=== PATIENT | male | born 1955 | race Caucasian/White ===

== ENCOUNTER → 2020-01-20 | Outpatient (CLI) | payer OTHER ==
[~2020-01-20] MED LIST: ALLO100T PO; ALPR0.25 PO; ASPI81TA59 PO; CITA10TA4 PO; DEXT20TA2 PO; HYDR-2759 PO; LOSA-73 PO; PROM25TA10 PO; SIMV10TA PO
== END | disposition home or self-care (01) ==
LOC: LAB 15:04
PROVIDERS: ATTEND Orthopaedic Surgery
DX: Z01.818 Encounter for other preprocedural examination (principal); Z11.59 Encounter for screening for other viral diseases; G56.01 Carpal tunnel syndrome, right upper limb
CPT/HCPCS: C9803; U0003

== ENCOUNTER 2020-01-25 08:56 | Day surgery (SDC) | payer OTHER ==
[~2020-01-25] VITALS: Ht 170.2 cm; Wt 104.3 kg
[~2020-01-25 08:56] MED LIST changes: -HYDR-2759 PO; +HYDROmorphone 2 MG/ML VIAL IV PRN; +IV RINGERS,LACTATED 1000ML 1,000 ML IV SCH; +LIDOCAINE 1% PF 2 ML VIAL. ID PRN; +MORPHINE SULFATE 2 MG/ML VIAL. IV PRN; +ONDANSETRON PF 4 MG/2 ML VIAL. IV PRN; +PROCHLORPERAZINE 10 MG/2 ML VIAL. IV PRN; -PROM25TA10 PO; +fentaNYL PF VIAL 100 MCG/2 ML VIAL IV PRN
[2020-01-25] MEDS ORDERED: PROPOFOL 50 ML IV ONE (09:53)
[2020-01-25] MEDS ORDERED: LIDOCAINE 2% PF 5 ML VIAL. ONE ×3 (09:53→09:55)
[2020-01-25] MEDS ORDERED: 0.9 % SODIUM CHLORIDE 20 ML VIAL. IJ ONE ×2 (09:55)
[2020-01-25] MEDS ORDERED: MIDAZOLAM HCL/PF 2 MG/2 ML VIAL. ONE (09:59)
--- NOTE | 2020-01-25 10:40 | PDOC1 ---
History and Physical Date of Admission Date of Admission DATE: 01/25/20 TIME: 10:28 Identification/Chief Complaint Chief Complaint Right carpal tunnel syndrome Source Source: Chart review, Patient History of Present Illness History of Present Illness Cindy is here with right hand numbness, and also has left hand numbness. An EMG confirms carpal tunnel syndrome. Left hand dominant. He has been wearing bilateral hand braces with only partial relief. He currently describes numbness in both hands, exacerbated by riding a bicycle, doing housework, or driving. He is here today for elective right carpal tunnel release surgery Past Medical History Past Medical History ADHD-combined type. High blood pressure. High cholesterol. Cardiovascular: HTN, Hyperlipidemia Psych: Other (ADHD) Past Surgical History Past Surgical History back surgery - hernia 2009 Past Surgical History: Hernia Repair Family History Family History: Cancer, Diabetes, Heart Disease Social History Smoke: No ALCOHOL: occassional Current Medications Current Medications Current Medications Ondansetron HCl (Zofran) 4 mg PRN Q6HRS PRN IV NAUSEA/VOMITING; Start 01/25/20 at 07:00; Stop 01/26/20 at 06:59 Fentanyl Citrate (Fentanyl 2ml Vial) 25 mcg PRN Q5MIN PRN IV MILD PAIN 1-3; Start 01/25/20 at 07:00; Stop 01/26/20 at 06:59 Fentanyl Citrate (Fentanyl 2ml Vial) 50 mcg PRN Q5MIN PRN IV MODERATE TO SEVERE PAIN; Start 01/25/20 at 07:00; Stop 01/26/20 at 06:59 Morphine Sulfate (Morphine Sulfate) 1 mg PRN Q10MIN PRN IV SEVERE PAIN 7-10; Start 01/25/20 at 07:00; Stop 01/26/20 at 06:59 Ringer's Solution 1,000 ml @ 30 mls/hr Q24H IV Last administered on 01/25/20at 09:32; Start 01/25/20 at 07:00; Stop 01/25/20 at 18:59 Lidocaine HCl (Xylocaine-Mpf 1% 2ml Vial) 2 ml PRN 1X PRN ID PRIOR TO IV START; Start 01/25/20 at 07:00; Stop 01/26/20 at 06:59 Hydromorphone HCl (Dilaudid) 0.5 mg PRN Q10MIN PRN IV SEV PAIN, Second choice; Start 01/25/20 at 07:00; Stop 01/26/20 at 06:59 Prochlorperazine Edisylate (Compazine) 5 mg PACU PRN PRN IV NAUSEA, MRX1; Start 01/25/20 at 07:00; Stop 01/26/20 at 06:59 Cefazolin Sodium/ Dextrose 50 ml @ 100 mls/hr 1X PREOP PRN IV PRIOR TO PROCEDURE; Start 01/25/20 at 06:00; Stop 01/25/20 at 18:00 Propofol 50 ml @ As Directed STK-MED ONCE IV ; Start 01/25/20 at 09:53; Stop 01/25/20 at 09:53; Status DC Lidocaine HCl (Lidocaine Pf 2% Vial) 5 ml STK-MED ONCE .ROUTE ; Start 01/25/20 at 09:53; Stop 01/25/20 at 09:53; Status DC Lidocaine HCl (Lidocaine Pf 2% Vial) 5 ml STK-MED ONCE .ROUTE ; Start 01/25/20 at 09:53; Stop 01/25/20 at 09:53; Status DC Lidocaine HCl (Lidocaine Pf 2% Vial) 5 ml STK-MED ONCE .ROUTE ; Start 01/25/20 at 09:55; Stop 01/25/20 at 09:55; Status DC Sodium Chloride (SODIUM CHLORIDE 20ml) 20 ml STK-MED ONCE IJ ; Start 01/25/20 at 09:55; Stop 01/25/20 at 09:56; Status DC Sodium Chloride (SODIUM CHLORIDE 20ml) 20 ml STK-MED ONCE IJ ; Start 01/25/20 at 09:55; Stop 01/25/20 at 09:56; Status DC Midazolam HCl (Versed) 2 mg STK-MED ONCE .ROUTE ; Start 01/25/20 at 09:59; Stop 01/25/20 at 09:59; Status DC Active Scripts Active Reported Children's Aspirin (Aspirin) 81 Mg Tab.chew 81 Mg PO DAILY Adderall 20 Mg Tablet (Dextroamphetamine/Amphetamine) 20 Mg Tablet 20 Mg PO DAILY Xanax (Alprazolam) 0.25 Mg Tablet 0.25 Mg PO PRN Q6HRS PRN Citalopram Hbr (Citalopram Hydrobromide) 10 Mg Tablet 10 Mg PO DAILY Allopurinol 100 Mg Tablet 200 Mg PO DAILY Losartan Potassium 50 Mg Tablet 50 Mg PO DAILY Zocor (Simvastatin) 10 Mg Tablet 10 Mg PO HS Allergies Allergies: Coded Allergies: No Known Drug Allergies (Unverified , 01/25/20) ROS PSYCHOLOGICAL ROS: YES: Concentration difficultie Eyes: No Double vision HEENT: No: Hearing change Respiratory: No: Cough, Shortness of breath, SOB with excertion Cardiovascular: No Chest Pain Gastrointestinal: No Nausea, No Vomiting, No Diarrhea, No Constipation Musculoskeletal: Yes Joint Pain, Yes Pain In: (back and right hip, relieved with lumbar epidural steroid injection) Neurological: Yes Gait Disturbance (back and hip pain, difficulty walking the dog) Skin: No Hair Changes Physical Exam General: Alert, Cooperative HEENT: Atraumatic Lungs: Normal air movement Heart: RRR Abdomen: Soft Extremities: No clubbing, No cyanosis, No edema, Normal pulses, Other (The overall alignment of the RIGHT hand is normal. There are no masses. Minimal tenderness except over the median nerve. Light touch sensation is decreased in the thumb index and long finger. 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 Pulses intact. Phalen's positive. There is trace thenar atrophy. Tinel's equivocal. Tinel's at the elbow is negative. Mildly positive Grind test) Skin: No significant lesion Neuro: Normal speech, Normal tone Psych/Mental Status: Mood NL Vitals Vitals Vital Signs Date Time Temp Pulse Resp B/P (MAP) Pulse Ox O2 Delivery O2 Flow Rate FiO2 01/25/20 09:18 97.1 57 16 131/81 97 Room Air 97.1 Labs Labs EMG from 05/07/2017 was reviewed. The right median distal sensory latency at the second digit showed no response. The mid palm sensory latency was 3.3 ms. Motor latency across the wrist was 4.43 ms. Nerve conduction studies revealed absence of the right median distal sensory response with digital stimulation while the response obtained with palmar stimulation demonstrates moderately prolonged distal latency and reduced amplitude. The left median distal sensory responses demonstrated moderately prolonged distal latencies and reduced amplitudes. Needle examination was unremarkable. 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 This was slightly worse in the right upper extremity. VTE Prophylaxis Ordered VTE Prophylaxis Devices: No VTE Pharmacological Prophylaxi: No Assessment/Plan Assessment/Plan He has bilateral carpal tunnel syndrome. I recommended [facility] rather than simultaneous bilateral carpal tunnel release. We will plan for right carpal tunnel surgery today. He is here for elective right carpal tunnel release under regional anesthetic.We discussed the potential risks of infection, neurovascular injury, bleeding, painful scar, prolonged pain, or other potential surgical or anesthetic complications. We also discussed postoperative treatment and expectations. All of his questions were answered and he desires to proceed with surgery today. Justicifation of Admission Dx: Justifications for Admission: Justification of Admission Dx: N/A JOSE ENRIQUE CALDERON MD Jan 25, 2020 10:40
[2020-01-25] MEDS ORDERED: BUPIVACAINE-EPI 0.25%-1:200000 MPF 30 ML VIAL. ONE (11:23)
--- NOTE | 2020-01-25 11:36 | PDOC4 ---
Operative Note Operative Note DATE: January 25, 2020 PREOPERATIVE DIAGNOSIS Carpal tunnel syndrome, right upper limb G56.01 POSTOPERATIVE DIAGNOSIS: Carpal tunnel syndrome, right upper limb G56.01 PROCEDURES PERFORMED: right wrist, open carpal tunnel release (neuroplasty of the median nerve at the carpal tunnel, CPT 95584 SURGEON: Jose Enrique Luz MD VOLUNTEER SERVICES MANAGER: Chris REYES ANESTHESIA: Regional intravenous block (Katja Block) ESTIMATED BLOOD LOSS: 20 mL SPECIMENS: none DRAINS: none COMPLICATIONS: none TOURNIQUET: 22 minutes at 250 mm Hg INDICATIONS FOR PROCEDURE: The patient is a 64-year-old with right hand pain and numbness. EMG confirms carpal tunnel syndrome. The patient and I discussed carpal tunnel release surgery along with the potential risks of infection, neurovascular injury, bleeding, persistent or recurrent carpal tunnel syndrome, wound healing problems, or other surgical or anesthetic complications. All of the patients questions about surgery were answered and they desired to proceed. Written consent was obtained. DESCRIPTION OF OPERATION: The patient was identified in the preoperative holding area. The correct right hand was marked by me. The patient was taken to the operating room and positioned supine on the operating table with the right arm extended on an arm board. A tourniquet was placed on the upper right arm. Preoperative antibiotics were given intravenously. A timeout procedure was performed. A [place] block was performed by the anesthesia team, and the tourniquet was inflated as part of the anesthetic.The limb was prepared in sterile fashion with ChloraPrep solution and sterile drapes were applied. Forceps were used to pinch the skin at the wrist, to check the adequacy of the block.A curvilinear incision was made with a 15 blade scalpel, 2mm ulnar to the thenar crease, using landmarks including the thenar crease, Kaplans cardinal line, the ulnar border of the fingernail of the ring finger, the wrist flexion crease, and the palmaris longus tendon. Care was made not to extend this incision beyond Kaplans cardinal line, so as to avoid arterial injury. Loupe magnification (3.5x extended field) was used throughout to prevent neur ovascular injury. Sharp dissection was used through the subcutaneous tissues, and the palmaris longus tendon was retracted toward the thumb. Bipolar electrocautery was used for hemostasis. The transverse carpal ligament was identified and was divided under direct vision proximally and distally. Scissor dissection was used proximal to the wrist flexion crease to complete the proxima l release of the transverse carpal ligament with the skin elevated away from the dissection. Digital palpation was used proximally and distally, ensuring a complete release. A gentle scissor neuroplasty was now performed along the ulnar aspect of the median nerve, releasing dense adhesions and dense synovium. He had more prominent distended small veins within the carpal canal than is usually seen. The right median nerve was thinned. Care was made not to injure the motor branch on the radial aspect. Copious saline irrigation was used. The tourniquet was released. Bipolar electrocautery was used for hemostasis. The skin edges were injected with 0.25% bupivacaine with epinephrine. The skin edges were reapproximated with 3-0 Prolene horizontal mattress sutures by my assistant producer. Needle and sponge counts were correct. Xeroform and a sterile dressing were applied. here were no apparent complications. The patient returned to the recovery room in stable condition. JOSE ENRIQUE LUZ MD Jan 25, 2020 11:36
[2020-01-25] MEDS ORDERED: ceFAZolin 2GM PREMIX 2 GM/50 ML BAG IV ONE (12:00)
[2020-01-25] MEDS ORDERED: HYDROcodone/APAP 5/325MG 1 TAB TABLET ONE (12:02)
[2020-01-25] MEDS ORDERED: HYDROcodone/APAP 5/325MG 1 TAB TABLET PO ONE (12:15)
[2020-01-25 12:30] VITALS: BP 117/62
[2020-01-25] MEDS ORDERED: PROM25TA10 PO (12:33)
[2020-01-25] MEDS ORDERED: HYDR-2759 PO (12:33)
== END 2020-01-25 13:00 | disposition home or self-care (01) ==
LOC: EDSEX → SURG 08:56
PROVIDERS: ATTEND Orthopaedic Surgery
DX: G56.01 Carpal tunnel syndrome, right upper limb (principal); I10 Essential (primary) hypertension; E78.00 Pure hypercholesterolemia, unspecified; E78.5 Hyperlipidemia, unspecified; Z98.890 Other specified postprocedural states; Z79.899 Other long term (current) drug therapy; Z83.3 Family history of diabetes mellitus
CPT/HCPCS: 64721; A7015; J0690; J2250; J2704; J3490

== ENCOUNTER → 2020-02-24 | Outpatient (CLI) | payer OTHER ==
[2020-01-25 12:30] VITALS: BP 117/62
[~2020-02-24] MED LIST changes: +HYDR-2759 PO; -HYDROmorphone 2 MG/ML VIAL IV PRN; -IV RINGERS,LACTATED 1000ML 1,000 ML IV SCH; -LIDOCAINE 1% PF 2 ML VIAL. ID PRN; -MORPHINE SULFATE 2 MG/ML VIAL. IV PRN; -ONDANSETRON PF 4 MG/2 ML VIAL. IV PRN; -PROCHLORPERAZINE 10 MG/2 ML VIAL. IV PRN; +PROM25TA10 PO; -fentaNYL PF VIAL 100 MCG/2 ML VIAL IV PRN
== END | disposition home or self-care (01) ==
LOC: LAB 15:33
PROVIDERS: ATTEND Orthopaedic Surgery
DX: Z01.812 Encounter for preprocedural laboratory examination (principal); Z20.828 Contact with and (suspected) exposure to other viral communicable diseases; G56.00 Carpal tunnel syndrome, unspecified upper limb
CPT/HCPCS: U0003-CS

== ENCOUNTER 2020-03-02 08:24 | Day surgery (SDC) | payer OTHER ==
[~2020-03-02] VITALS: Ht 170.2 cm; Wt 104.0 kg
[~2020-03-02 08:24] MED LIST changes: +0.9 % SODIUM CHLORIDE 20 ML VIAL. IJ ONE; +BUPIVACAINE MPF 0.25% 30 ML VIAL. ONE; +BUPIVACAINE-EPI 0.5%-1:200000 MPF 30 ML VIAL. ONE; +HYDROmorphone 2 MG/ML VIAL IV PRN; +LIDOCAINE 2% PF 5 ML VIAL. ONE; +MORPHINE SULFATE 2 MG/ML VIAL. IV PRN; +ONDANSETRON PF 4 MG/2 ML VIAL. IV PRN; +PROCHLORPERAZINE 10 MG/2 ML VIAL. IV PRN; +PROPOFOL 10 MG/ML (20ML) VIAL. IV ONE; +ceFAZolin 2GM PREMIX 2 GM/50 ML BAG IV ONE; +fentaNYL PF VIAL 100 MCG/2 ML VIAL IV PRN; +fentaNYL PF VIAL 100 MCG/2 ML VIAL ONE
[2020-03-02] MEDS: IV RINGERS,LACTATED 1000ML 1,000 ML IV SCH ×2 (08:50→10:12)
--- NOTE | 2020-03-02 09:28 | PDOC4 ---
Operative Note Operative Note DATE: March 02, 2020 PREOPERATIVE DIAGNOSIS Carpal tunnel syndrome, left upper limb G56.02: POSTOPERATIVE DIAGNOSIS: Carpal tunnel syndrome, left upper limb G56.02 PROCEDURES PERFORMED: left wrist, open carpal tunnel release (neuroplasty of the median nerve at the carpal tunnel, CPT 25340) SURGEON: Jose Enrique Luz MD JACKSCREW WORKER: ANESTHESIA: Regional intravenous block ([place] Block) ESTIMATED BLOOD LOSS: 5 mL SPECIMENS: none DRAINS: none COMPLICATIONS: none TOURNIQUET: 26 minutes at 250 mm Hg INDICATIONS FOR PROCEDURE: The patient is a 64-year-old with left hand pain and numbness. EMG confirms carpal tunnel syndrome. The patient and I discussed carpal tunnel release surgery along with the potential risks of infection, neurovascular injury, bleeding, persistent or recurrent carpal tunnel syndrome, wound healing problems, or other surgical or anesthetic complications. All of the patients questions about surgery were answered and they desired to proceed. Written consent was obtained. DESCRIPTION OF OPERATION: The patient was identified in the preoperative holding area. The correct left hand was marked by me. The patient was taken to the operating room and positioned supine on the operating table with the left arm extended on an arm board. A tourniquet was placed on the upper left arm. Preoperative antibiotics were given intravenously. A timeout procedure was performed. A Katja block was performed by the anesthesia team, and the tourniquet was inflated as part of the anesthetic.The limb was prepared in sterile fashion with ChloraPrep solution and sterile drapes were applied. Forceps were used to pinch the skin at the wrist, to check the adequacy of the block.A curvilinear incision was made with a 15 blade scalpel, 2mm ulnar to the thenar crease, using landmarks including the thenar crease, Kaplans cardinal line, the ulnar border of the fingernail of the ring finger, the wrist flexion crease, and the palmaris longus tendon. Care was made not to extend this incision beyond Kaplans cardinal line, so as to avoid arterial injury. Loupe magnification (3.5x extended field) was used throughout to prevent neurovascular injury. Sharp dissection was used through the subcutaneous tissues, and the palmaris longus tendon was retracted toward the thumb. Bipolar electrocautery was used for hemostasis. The transverse carpal ligament was identified and was divided under direct vision proximally and distally. Scissor dissection was used proximal to the wrist flexion crease to complete the proximal release of the transverse carpal ligament with the skin elevated away from the dissection. Digital palpation was used proximally and distally, ensuring a complete release. A gentle scissor neuroplasty was now performed along the ulnar aspect of the median nerve, releasing dense adhesions and dense synovium. The left median nerve was thinned. Care was made not to injure the motor branch on the radial aspect. Copious saline irrigation was used. Bipolar electrocautery was used for hemostasis. The skin edges were injected with 0.25% bupivacaine with epinephrine. The skin edges were reapproximated with 3-0 Prolene horizontal mattress sutures. Needle and sponge counts were correct. Xeroform and a sterile dressing were applied. The tourniquet was released. There were no apparent complications. The patient returned to the recovery room in stable condition. JOSE ENRIQUE LUZ MD Mar 02, 2020 09:28
[2020-03-02 10:10] VITALS: BP 154/76
== END 2020-03-02 10:41 | disposition home or self-care (01) ==
LOC: SURG 08:24
PROVIDERS: ATTEND Orthopaedic Surgery
DX: G56.02 Carpal tunnel syndrome, left upper limb (principal); I10 Essential (primary) hypertension; Z79.899 Other long term (current) drug therapy; Z98.890 Other specified postprocedural states; Z83.3 Family history of diabetes mellitus
CPT/HCPCS: 64721; J0690; J2704; J3010; J3490